=== PATIENT | female | born 1990 | race African-American/Black ===

== ENCOUNTER 2020-01-01 13:35 | Emergency (ER) | payer BC, OTHER ==
[~2020-01-01] VITALS: Ht 154.9 cm; Wt 67.1 kg
[~2020-01-01 13:35] MED LIST: PYRIDIUM200 MG PO
[2020-01-01 13:54] LABS: URINE BILIRUBIN NEGATIVE (Negative); URINE BLOOD TRACE (Negative); URINE CLARITY CLEAR; URINE COLOR YELLOW; URINE GLUCOSE-RANDOM* NEGATIVE (Negative); URINE KETONES NEGATIVE (Negative); URINE LEUKOCYTES-REFLEX NEGATIVE (Negative); URINE NITRITE-REFLEX NEGATIVE (Negative); URINE PROTEIN (DIPSTICK) NEGATIVE (Negative); URINE UROBILINOGEN 0.2 E.U./dl (0.2-1.0)
[2020-01-01 14:08] LABS: ABSOLUTE NEUTROPHILS 5.9 thou/uL (1.4-8.2); BASOPHILS 0.4 % (0.0-2.0); EOSINOPHILS 0.5 % (0.0-3.0); HEMATOCRIT 35.4 % (37.0-47.0); HEMOGLOBIN 12.3 gm/dL (12.0-15.0); LYMPHOCYTES 24.4 % (24.0-44.0); MCH 29.4 pg (26.0-34.0); MCHC 34.9 g/dL (28.0-37.0); MCV 84.1 fL (80.0-100.0); MONOCYTES 5.1 % (1.0-8.0); PLATELET COUNT 257 thou/uL (150-400); POLYS 69.6 % (36.0-66.0); RBC 4.21 mil/uL (4.20-5.00); RDW 12.8 % (10.5-14.5); WBC 8.5 thou/uL (4.0-11.0)
[2020-01-01 14:15] LABS: CALCIUM 9.1 mg/dL (8.5-10.1); CREATININE 0.8 mg/dL (0.6-1.0); POTASSIUM 3.3 mmol/L (3.5-5.1)
[2020-01-01] MEDS ORDERED: ZOFRAN ODT4 MG DISSOLVE (14:55)
[2020-01-01] MEDS ORDERED: MECLIZINE HCL25 M1 PO (14:55)
[2020-01-01 15:03] VITALS: BP 108/79
--- NOTE | 2020-01-02 08:44 | EKG ---
[facility] [place] [address] ELECTROCARDIOGRAM REPORT Name: RUI GRAHAM Room #: DEP [facility]#: [id number] Admission: 01/01/20 Attend Phys: Discharge: 01/01/20 Date of : [birth year] Report #: [id number] THIS REPORT FOR: cc: DONNA - No family physician/PCP FAM - No family physician/PCP Mumtaz Mcguire MD [facility] THIS REPORT FOR: //name// [facility] ED Test Date: 2020-01-01 Test Time: 13:58:21 Pat Name: RUI GRAHAM Department: Room: Gender: F Dentist Private Practice: [facility] : 1990 Requested By: Rich Koehler Order Number: [id number] MD: Mumtaz Mcguire Measurements Intervals Hodge Rate: 77 P: 60 DE: 157 QRS: 22 QRSD: 76 T: 48 QT: 368 QTc: 417 Interpretive Statements Sinus rhythm Normal tracing No previous ECG available for comparison Electronically Signed On 01-02-2020 8:44:19 CDT by Mumtaz Mcguire [email or web address] <ELECTRONICALLY SIGNED> By: Mumtaz Mcguire MD, [facility] 01/02/20 [id number] Mumtaz Mcguire MD, FAC /EPI
== END 2020-01-01 15:10 | disposition home or self-care (01) ==
LOC: ER 13:35
PROVIDERS: Emergency Medicine
DX: H81.10 Benign paroxysmal vertigo, unspecified ear (principal)